=== PATIENT | female | born 1940 | race Two or more races ===

== ENCOUNTER → 2017-09-03 | Outpatient (CLI) | payer OTHER ==
[~2017-09-03] VITALS: Ht 152.4 cm; Wt 63.5 kg
[~2017-09-03] MED LIST: ALLEGRA ALLERG180 MG PO; ATARAX25 MG PO; ATORVASTATIN CA20 MG; HYZAAR 100-121 UDTAB PO; NIZORAL SHAMPO120 ML TP; ORPH100T PO; SYNTHROID200 MCG PO; TOPROL XL50 MG; ULTRACET PO
== END | disposition home or self-care (01) ==
LOC: PPHC 14:59
DX: M79.672 Pain in left foot (principal)

== ENCOUNTER 2017-12-26 10:06 | Emergency (ER) | payer OTHER ==
[~2017-12-26] VITALS: Ht 160 cm; Wt 61.2 kg
== END 2017-12-26 11:40 | disposition home or self-care (01) ==
LOC: ER 10:06
DX: R60.0 Localized edema (principal)

== ENCOUNTER 2018-01-26 10:02 | Emergency (ER) | payer OTHER ==
[~2018-01-26] VITALS: Ht 160 cm; Wt 56.7 kg
[2018-01-27] MEDS ORDERED: LASIX20 MG PO (10:37)
== END 2018-01-26 11:51 | disposition home or self-care (01) ==
LOC: ER 10:02
DX: M25.472 Effusion, left ankle (principal)

== ENCOUNTER 2018-01-27 09:28 | Emergency (ER) | payer OTHER ==
[~2018-01-27] VITALS: Ht 160 cm; Wt 63.5 kg
[2018-01-27] MEDS ORDERED: LASIX20 MG PO (10:37)
== END 2018-01-27 11:22 | disposition home or self-care (01) ==
LOC: ER 09:28
DX: R60.0 Localized edema (principal)

== ENCOUNTER 2018-04-08 19:32 | Inpatient (IN) | payer OTHER ==
[~2018-04-08] VITALS: Ht 160 cm; Wt 54.4 kg
[~2018-04-08 19:32] MED LIST changes: +LASIX20 MG PO
[2018-04-08] MEDS ORDERED: LIPITOR40 MG (19:53)
[2018-04-13] MEDS ORDERED: TOPROL XL50 MG PO (11:53)
[2018-04-13] MEDS ORDERED: LEVOTHYROXINE125 MCG PO (11:53)
[2018-04-13] MEDS ORDERED: LIPITOR40 MG PO (11:53)
[2018-04-13] MEDS ORDERED: RESTORIL15 MG PO (11:53)
[2018-04-13] MEDS ORDERED: XARELTO10 MG PO (11:53)
[2018-04-19] MEDS ORDERED: TOPROL XL25 M1 (13:26)
[2018-04-19] MEDS ORDERED: RESTORIL30 M1 (13:26)
[2018-04-19] MEDS ORDERED: LASIX20 MG (13:26)
[2018-04-19] MEDS ORDERED: SYNTHROID50 MCG (13:26)
[2018-04-19] MEDS ORDERED: XARELTO10 MG (13:26)
[2018-04-19] MEDS ORDERED: LIPITOR40 MG (13:27)
[2018-04-19] MEDS ORDERED: CELEBREX100 MG PO (15:46)
== END 2018-04-13 15:33 | DRG 470 ==
LOC: ER 19:32 → SURG 04-09 14:09 → O/R 04-09 14:09 → SEC-K 04-09 14:09 → O/R 04-09 16:23 → SURG 04-09 18:27
PROVIDERS: Orthopaedic Surgery
PROC: 0MBM0ZZ Excision of Left Hip Bursa and Ligament, Open Approach (ICD-10-PCS; 2018-04-09)
PROC: 0SRS0JZ Replacement of Left Hip Joint, Femoral Surface with Synthetic Substitute, Open Approach (ICD-10-PCS; principal; 2018-04-09 16:00)
PROC: 4A033R1 Measurement of Arterial Saturation, Peripheral, Percutaneous Approach (ICD-10-PCS; 2018-04-10)
DX: S72.092A Other fracture of head and neck of left femur, initial encounter for closed fracture (principal); F05 Delirium due to known physiological condition; W18.39XA Other fall on same level, initial encounter; Y93.89 Activity, other specified; Y92.89 Other specified places as the place of occurrence of the external cause; Y99.8 Other external cause status; M16.12 Unilateral primary osteoarthritis, left hip; M70.62 Trochanteric bursitis, left hip; I10 Essential (primary) hypertension; Z78.1 Physical restraint status

== ENCOUNTER → 2018-04-16 | Emergency (ER) | payer OTHER ==
[~2018-04-16] MED LIST changes: +CELEBREX100 MG PO; +LASIX20 MG; +LEVOTHYROXINE125 MCG PO; +LIPITOR40 MG; +LIPITOR40 MG PO; +RESTORIL15 MG PO; +RESTORIL30 M1; +SYNTHROID50 MCG; +TOPROL XL25 M1; +TOPROL XL50 MG PO; +XARELTO10 MG; +XARELTO10 MG PO
== END | disposition left against medical advice (07) ==
LOC: ER 12:24
DX: Z53.20 Procedure and treatment not carried out because of patient's decision for unspecified reasons (principal)

== ENCOUNTER → 2018-06-04 | Emergency (ER) | payer OTHER | END | disposition left against medical advice (07) | LOC: ER 15:25 | DX: Z53.20 Procedure and treatment not carried out because of patient's decision for unspecified reasons (principal) ==

== ENCOUNTER → 2018-07-17 | Emergency (ER) | payer OTHER ==
[~2018-07-17] VITALS: Ht 157.5 cm; Wt 59.0 kg
== END | disposition left against medical advice (07) ==
LOC: ER 13:20
DX: Z53.20 Procedure and treatment not carried out because of patient's decision for unspecified reasons (principal)

== ENCOUNTER 2018-08-13 10:36 | Outpatient (CLI) | payer OTHER | END 2018-08-13 10:56 | disposition home or self-care (01) | LOC: NUCLEAR 10:36 | DX: I87.2 Venous insufficiency (chronic) (peripheral) (principal) ==

== ENCOUNTER 2018-09-06 08:44 | Emergency (ER) | payer OTHER ==
[~2018-09-06] VITALS: Ht 162.6 cm; Wt 63.5 kg
[2018-09-06] MEDS ORDERED: COZAAR50 MG (08:59)
== END 2018-09-06 15:11 | disposition home or self-care (01) ==
LOC: ER 08:44
DX: R55 Syncope and collapse (principal)

== ENCOUNTER 2019-06-07 13:29 | Emergency (ER) | payer OTHER ==
[~2019-06-07] VITALS: Ht 157.5 cm; Wt 70.3 kg
[~2019-06-07 13:29] MED LIST changes: +COZAAR50 MG
[2019-06-07] MEDS ORDERED: ARICEPT10 MG (13:46)
[2019-06-07] MEDS ORDERED: RESTORIL15 M1 (13:47)
[2019-06-07] MEDS ORDERED: ZYPREXA ZYDIS10 MG (13:47)
== END 2019-06-07 18:08 | disposition home or self-care (01) ==
LOC: ER 13:29
DX: S00.511A Abrasion of lip, initial encounter (principal); W18.39XA Other fall on same level, initial encounter; Y93.89 Activity, other specified; Y92.018 Other place in single-family (private) house as the place of occurrence of the external cause; Y99.8 Other external cause status

== ENCOUNTER 2019-09-14 10:15 | Emergency (ER) | payer OTHER ==
[~2019-09-14] VITALS: Ht 160 cm; Wt 70.3 kg
[~2019-09-14 10:15] MED LIST changes: +ARICEPT10 MG; +RESTORIL15 M1; +ZYPREXA ZYDIS10 MG
== END 2019-09-14 13:58 | disposition home or self-care (01) ==
LOC: ER 10:15
DX: S01.02XA Laceration with foreign body of scalp, initial encounter (principal); W18.09XA Striking against other object with subsequent fall, initial encounter; Y93.89 Activity, other specified; Y92.098 Other place in other non-institutional residence as the place of occurrence of the external cause; Y99.8 Other external cause status